=== PATIENT | male | born 1990 | race African-American/Black ===

== ENCOUNTER 2018-06-11 10:45 | Emergency (ER) | payer OTHER ==
[~2018-06-11] VITALS: Ht 167.6 cm; Wt 90.7 kg
[~2018-06-11 10:45] MED LIST: AZITHROMYCIN 2250 MG PO; BACTRIM DS TAB1 EACH PO; DOXYCYCLINE 10100 MG PO; IBUPROFEN 600600 M1 PO; IBUPROFEN 800800 M1 PO; INDOMETHACIN 2525 MG PO; NORCO 5-325 TA1 EACH PO; PERCOCET 7.5-31 EACH PO; PREDNISONE 20 M20 M1 PO; PROMETHAZINE-D120 ML PO; PROZAC20 MG PO; VENTOLIN HFA INH8 GM IH
[2018-06-11] MEDS ORDERED: NAPROSYN500 MG PO (14:03)
[2018-06-11 14:12] VITALS: BP 119/60
== END 2018-06-11 14:13 | disposition home or self-care (01) ==
LOC: M.ERS 10:45
DX: M54.6 Pain in thoracic spine (principal); S16.1XXA Strain of muscle, fascia and tendon at neck level, initial encounter; M10.9 Gout, unspecified; Z88.0 Allergy status to penicillin; X50.3XXA Overexertion from repetitive movements, initial encounter; Y93.89 Activity, other specified; Y92.89 Other specified places as the place of occurrence of the external cause; Y99.0 Civilian activity done for income or pay

== ENCOUNTER 2019-04-30 15:11 | Emergency (ER) | payer OTHER ==
[~2019-04-30] VITALS: Ht 167.6 cm; Wt 86.6 kg
[~2019-04-30 15:11] MED LIST changes: +NAPROSYN500 MG PO
[2019-04-30] MEDS ORDERED: MED FOR NIGHTMARES PO (15:19)
[2019-04-30] MEDS ORDERED: ZOLOFT100 MG PO (15:19)
[2019-04-30] MEDS ORDERED: VENTOLIN HFA 1818 GM INH ×2 (15:19→16:19)
[2019-04-30 15:38] LABS: ABSOLUTE BASOPHILS 0.2 thou/uL (0.0-0.2); ABSOLUTE EOSINOPHILS 0.2 thou/uL (0.0-0.7); ABSOLUTE LYMPHOCYTES 2.3 thou/uL (0.8-5.3); ABSOLUTE MONOCYTES 0.9 thou/uL (0.0-1.2); ABSOLUTE NEUTROPHILS 8.7 thou/uL (1.6-8.1); BASOPHILS 1.5 %; EOSINOPHILS 1.4 %; HEMATOCRIT 41.8 % (42.0-52.0); MCH 28.4 pg (26.0-34.0); MCHC 33.6 g/dL (28.0-37.0); MCV 84.4 fL (80.0-100.0); MONOCYTES 7.6 %; MPV 6.9 fl. (7.2-11.1); NUCLEATED RBCS 0 /100WBC; PLATELET COUNT* 367 thou/uL (150-400); POLYS 70.5 %; RBC 4.95 mil/uL (4.50-6.00); RDW-CV 14.9 % (10.5-14.5); WBC 12.3 thou/uL (4.0-11.0)
[2019-04-30 16:03] LABS: ANION GAP 9 mmol/L (7-16); BUN 10 mg/dL (7-18); CALCIUM 8.9 mg/dL (8.5-10.1); CHLORIDE 102 mmol/L (98-107); CO2 28 mmol/L (21-32); CREATININE 1.2 mg/dL (0.6-1.3); GLUCOSE 101 mg/dL (70-99); POTASSIUM 3.8 mmol/L (3.5-5.1); SODIUM 139 mmol/L (136-145)
[2019-04-30 16:08] LABS: ALBUMIN 3.6 g/dL (3.4-5.0); ALKALINE PHOSPHATASE 140 U/L (46-116); SGOT 26 U/L (15-37); SGPT 58 U/L (30-65); TOTAL BILIRUBIN 0.5 mg/dL (<0.1-1.0); TROPONIN-I LEVEL <0.06 ng/mL (<0.06)
[2019-04-30] MEDS ORDERED: PREDNISONE50 MG PO (16:19)
[2019-04-30 16:46] VITALS: BP 126/73
--- NOTE | 2019-05-01 10:43 | EKG ---
[place] [address] ELECTROCARDIOGRAM REPORT Name: ELISHA COLON Room: [facility]#: [id number] Admission: 04/30/19 Attend Phys: Discharge: 04/30/19 Date of : [birth year] Report #: [id number] THIS REPORT FOR: //name// [facility] ED Test Date: 2019-04-30 Test Time: 15:48:44 Pat Name: ELISHA COLON Department: Room: Gender: M Winemaker: [facility] : 1990 Requested By: Mac Benites Order Number: [id number] MD: Artur Hilton Measurements Intervals Issue Rate: 58 P: 0 [place]: 159 QRS: -9 QRSD: 92 T: 10 QT: 380 QTc: 374 Interpretive Statements Sinus rhythm ST elev, probable normal early repol pattern Compared to ECG 11/19/2016 23:34:31 no change Electronically Signed On 05-01-2019 10:42:43 CDT by Artur Hilton [email or web address] <ELECTRONICALLY SIGNED> By: Artur Hilton MD, [facility] 05/01/19 1042 1548 1548 Artur Hilton MD, FACC /EPI
== END 2019-04-30 16:49 | disposition home or self-care (01) ==
LOC: M.ERS 15:11
PROVIDERS: Emergency Medicine Emergency Medical Services
DX: J45.909 Unspecified asthma, uncomplicated (principal); M10.9 Gout, unspecified; Z88.0 Allergy status to penicillin

== ENCOUNTER 2019-05-01 12:29 | Emergency (ER) | payer OTHER ==
[~2019-05-01] VITALS: Ht 167.6 cm; Wt 92.9 kg
[~2019-05-01 12:29] MED LIST changes: +MED FOR NIGHTMARES PO; +PREDNISONE50 MG PO; +VENTOLIN HFA 1818 GM INH; +ZOLOFT100 MG PO
[2019-05-01 12:32] VITALS: BP 100/49
== END 2019-05-01 12:50 | disposition home or self-care (01) ==
LOC: M.ERS 12:29
DX: J45.901 Unspecified asthma with (acute) exacerbation (principal); M10.9 Gout, unspecified; Z88.0 Allergy status to penicillin

== ENCOUNTER 2020-08-23 19:01 | Emergency (ER) | payer MEDICAID ==
[~2020-08-23] VITALS: Ht 167.6 cm; Wt 90.3 kg
[2020-08-23] MEDS ORDERED: MINIPRESS1 MG PO (19:16)
[2020-08-23 20:34] VITALS: BP 126/79
== END 2020-08-23 20:34 | disposition home or self-care (01) ==
LOC: M.ERS 19:01
DX: S83.91XA Sprain of unspecified site of right knee, initial encounter (principal); J45.909 Unspecified asthma, uncomplicated; M10.9 Gout, unspecified; Z79.899 Other long term (current) drug therapy; Z88.0 Allergy status to penicillin; Z91.018 Allergy to other foods; X58.XXXA Exposure to other specified factors, initial encounter; Y93.89 Activity, other specified; Y92.89 Other specified places as the place of occurrence of the external cause; Y99.8 Other external cause status